=== PATIENT | female | born 1975 | race Caucasian/White ===

== ENCOUNTER 2024-09-01 04:39 | Inpatient (IN) | payer OTHER ==
[~2024-09-01] VITALS: Ht 154.9 cm; Wt 57.8 kg
[2024-09-01 04:54] VITALS: O2SAT 98
[2024-09-01] MEDS: SODIUM CHLORIDE 0.9% 1,000 ML IV ONE ×2 (05:19→08:14)
[2024-09-01] MEDS: ONDANSETRON HCL 4MG/2ML INJ IV ONE (05:19)
[2024-09-01 05:24] LABS: BASOPHILS % 0.3 % (0.0-2.0); EOSINOPHILS % 0.4 % (0.0-5.0); HEMATOCRIT. 41.8 % (36.0-48.0); HEMOGLOBIN. 14.2 g/dL (12.0-16.0); LYMPHOCYTES % 27.6 % (20.0-50.0); MEAN CORPUSCULAR HGB CONC 33.9 g/dL (31.0-37.0); MEAN CORPUSCULAR VOLUME 94.2 fL (81.0-99.0); MEAN PLATELET VOLUME 7.2 fl (7.4-10.4); NEUTROPHILS % 65.7 % (40.0-76.0); PLATELET 269 x1000/uL (130-400); RED BLOOD CELL COUNT 4.43 mill/uL (4.2-5.4); RED CELL DISTRIBUTION WIDTH 12.7 % (11.6-14.6); WHITE BLOOD COUNT 9.6 x1000/uL (4.5-11.0)
[2024-09-01] MEDS: MORPHINE SULFATE 4 MG/ML INJ (FOR IV/IM USE) IV ONE (05:26)
[2024-09-01] MEDS: ACETAMINOPHEN 1000MG/100ML 100 ML IV ONE (05:29)
[2024-09-01 05:33] LABS: CLARITY URINE CLEAR (CLEAR); COLOR URINE YELLOW (YELLOW); GLUCOSE URINE NEGATIVE (NEGATIVE); KETONES URINE NEGATIVE (NEGATIVE); LEUKOCYTE ESTERASE URINE 1+ (NEGATIVE); NITRITE URINE NEGATIVE (NEGATIVE); OCCULT BLOOD URINE TRACE (NEGATIVE); PROTEIN URINE NEGATIVE (NEGATIVE); SPECIFIC GRAVITY URINE 1.039 (1.005-1.030); UROBILINOGEN URINE 0.2 E.U./dL (0.2-1.0)
[2024-09-01 05:34] LABS: CHLORIDE 102 mEq/L (98-107); INR 1.1; POTASSIUM 3.4 mEq/L (3.5-5.1); PROTHROMBIN TIME 11.4 sec (9.6-11.0); SODIUM 137 mEq/L (136-145)
[2024-09-01 05:35] LABS: CARBON DIOXIDE 26 mEq/L (21-32)
[2024-09-01 05:36] LABS: CALCIUM 9.9 mg/dL (8.7-10.4)
[2024-09-01 05:40] LABS: CREATININE 0.8 mg/dL (0.6-1.0); GLUCOSE 128 mg/dL (70-105)
[2024-09-01 05:41] LABS: UREA NITROGEN BLOOD 13 mg/dL (9-23)
[2024-09-01 05:42] LABS: ALANINE AMINOTRANSFERASE 25 IU/L (10-49); ASPARTATE AMINOTRANSFERASE 31 IU/L (<34)
[2024-09-01 05:43] LABS: BILIRUBIN DIRECT 0.1 mg/dL (<=3.0); BILIRUBIN TOTAL 0.5 mg/dL (0.1-1.0); PROTEIN TOTAL 7.8 g/dL (6.0-8.3)
[2024-09-01 05:48] LABS: BACTERIA URINE TRACE; SQUAMOUS EPITHELIAL CELL URINE 2+ /lpf (RARE/1+)
[2024-09-01] MEDS: HYDRALAZINE 20MG/ML VIAL IV ONE (06:53)
[2024-09-01] MEDS: LACTULOSE 20G/30ML UDC PO ONE (08:16)
[2024-09-01] MEDS ORDERED: IPRATROPIUM/ALBUTEROL 0.5-3(2.5)MG/3ML NEB HHN PRN (09:15)
[2024-09-01] MEDS ORDERED: GUAIFENESIN 200MG/10ML SUGAR FREE UDC PO PRN (09:15)
[2024-09-01] MEDS ORDERED: DOCUSATE SODIUM 100MG CAPSULE PO PRN (09:15)
[2024-09-01] MEDS ORDERED: MAGNESIUM/ALUMINUM HYDROXIDE/SIMETHICONE 30ML UDC PO PRN (09:15)
[2024-09-01] MEDS: LORAZEPAM 0.5MG TABLET PO SCH (09:23)
[2024-09-01] MEDS: ENOXAPARIN 40MG/0.4ML SYR SUBCUT SCH (09:30)
[2024-09-01 09:40] VITALS: BP 157/94; PULSE 114; RESP 23; TEMP 36.5
[2024-09-01] MEDS: METOPROLOL SUCCINATE 25MG ER TABLET PO SCH (10:23)
[2024-09-01] MEDS: POTASSIUM CHLORIDE 20MEQ TABLET SR PO NR (10:23)
[2024-09-01 12:00] VITALS: BP 141/99; PULSE 103; RESP 10; TEMP 36.7; O2SAT 100
[2024-09-01] MEDS: DOCUSATE SODIUM 100MG CAPSULE PO SCH (12:50)
[2024-09-01] MEDS: KETOROLAC 15MG/ML VIAL IV PRN (12:50)
[2024-09-01 13:22] LABS: HEPATITIS B SURFACE ANTIGEN NEGATIVE (Negative)
[2024-09-01 13:43] LABS: HEPATITIS C AB NON REACTIVE (Neg) (Negative)
[2024-09-01] MEDS: LACTULOSE 20G/30ML UDC PO SCH (14:09)
[2024-09-01] MEDS: ONDANSETRON HCL 4MG/2ML INJ IV PRN (14:09)
[2024-09-01 16:14] VITALS: BP 186/114; PULSE 81; RESP 22; TEMP 36.5; O2SAT 96
[2024-09-01] MEDS ORDERED: METO25TA6 PO (16:16)
[2024-09-01] MEDS: CLONIDINE 0.1MG TABLET PO PRN (16:22)
[2024-09-01] MEDS ORDERED: OXYCODONE HCL 5MG TABLET PO PRN (17:15)
[2024-09-01] MEDS ORDERED: NALOXONE HCL 0.4MG/ML VIAL IV PRN (17:15)
[2024-09-01 17:27] VITALS: TEMP 97.7
[2024-09-01] MEDS: PROCHLORPERAZINE 10MG/2ML VIAL IV PRN (17:27)
[2024-09-01] MEDS: ACETAMINOPHEN 325MG TABLET PO SCH (17:27)
[2024-09-01] MEDS: HYDRALAZINE 20MG/ML VIAL IV PRN (18:13)
[2024-09-01] MEDS ORDERED: CEFTRIAXONE 1GM/50ML 50 ML IV SCH (20:00)
[2024-09-02] MEDS ORDERED: PANTOPRAZOLE 40MG DR TABLET PO SCH (06:50)
[2024-09-02] MEDS ORDERED: ONDA-241 MT (11:47)
== END 2024-09-01 20:00 | disposition left against medical advice (07) | DRG 948 ==
LOC: ER 04:39 → EDBEDREQ 05:56 → 3WST 08:43 → EDBEDREQ 08:45 → EDBEDREQSVC 08:45 → EDBEDREQTM 08:45 → ENRESERV 08:53 → CANRESERV 08:53 → ENRESERV 09:16
PROVIDERS: ADMIT Internal Medicine; ATTEND Internal Medicine
DX: G89.18 Other acute postprocedural pain (principal); I10 Essential (primary) hypertension; K59.00 Constipation, unspecified; Z53.29 Procedure and treatment not carried out because of patient's decision for other reasons; R00.0 Tachycardia, unspecified; I16.0 Hypertensive urgency; E87.6 Hypokalemia; Z79.899 Other long term (current) drug therapy
CPT/HCPCS: 36415; 74177; 80048; 80076; 81003; 85025; 86705; 87340; 99285; A4606; J0360; J0696; J0780; J1885; J2270; J2405; J7030; J0131